=== PATIENT | male | born 1975 | race Caucasian/White ===

== ENCOUNTER 2021-02-24 18:26 | Outpatient (REF) | payer OTHER, SELFPAY ==
[2021-02-26 12:47] LABS: HSV 1 DNA Result Negative (Negative); HSV 2 DNA Result Negative (Negative)
== END 2021-02-24 18:27 | disposition home or self-care (01) ==
LOC: LBN 18:26
PROVIDERS: PCP Emergency Medicine; Visit Provider Family Medicine
DX: R21 Rash and other nonspecific skin eruption (principal)
CPT/HCPCS: 87529; 87070; 87205

== ENCOUNTER 2021-04-28 01:36 | Outpatient (CLI) | payer OTHER, SELFPAY ==
[2021-05-01 11:09] LABS: Syphilis Serology (RPR) Negative (Negative)
== END 2021-04-28 01:37 | disposition home or self-care (01) ==
LOC: LBO 01:36
PROVIDERS: PCP Family Medicine; Visit Provider Physician Assistant Medical
DX: L08.9 Local infection of the skin and subcutaneous tissue, unspecified (principal)
CPT/HCPCS: 36415; 86592

== ENCOUNTER 2021-07-24 09:46 | Outpatient (REF) | payer OTHER, SELFPAY ==
--- NOTE | 2021-07-24 09:00 | SKI_PTH ---
PATIENT: Leopoldo Powers LOC: [facility] U#:[id number] AGE/SX: 45/M ROOM: RE07/24/[address]: Nishant Peck MD : [id number] BED: DIS: 07/24/2021 SPEC #: [id number] RECD: 07/24/21 17:39 STATUS: INEZ REJaneth #: [id number] RICHARD: 07/24/21 09:[address]: Nishant Peck DEPT: Surgical Specimen RECD BY: Maria Eugenia Baldwin ENTERED: 07/24/21 17:39 SP TYPE: IMTIAZ LORA DR: Becky Dupont Tissues: 1 - SKIN BIOPSY(SHAVE/PUNCH) Procedures: GROSS AND MICRO LEVEL 4 SPECIAL STAIN 1 Comments: [id number]
== END 2021-07-24 09:47 | disposition home or self-care (01) ==
LOC: LBN 09:46
PROVIDERS: PCP Family Medicine; Visit Provider Otolaryngology
DX: K12.1 Other forms of stomatitis (principal)
CPT/HCPCS: 88305; 88312

== ENCOUNTER 2023-09-19 15:47 | Outpatient (CLI) | payer MEDICAID, SELFPAY ==
[2023-09-19 13:51] LABS: Bilirubin Negative (Negative); Blood Negative (Negative); Clarity Clear (Clear); Glucose Negative (Negative); Ketones Negative (Negative); Leukocyte Esterase Negative (Negative); Nitrite Negative (Negative); Specific Gravity 1.025 (1.005-1.025)
[2023-09-19 14:05] LABS: Anion Gap 4.6 mmol/L (3-11); BUN 17 mg/dL (7-18); CO2 34.4 mmol/L (21.0-32.0); CREATININE 0.9 mg/dL (0.70-1.30); Calcium 8.8 mg/dL (8.5-10.1); Calculated LDL 131 mg/dL (<100); Chloride 104 mmol/L (98-107); Cholesterol 211 mg/dL (<200); Estimated GFR 104.05 (mL/min/1.73m2); Glucose 97 mg/dL (74-106); HDL Cholesterol 56 mg/dL (40-60); Potassium 3.9 mmol/L (3.5-5.1); Sodium 143 mmol/L (136-145); Triglyceride 123 mg/dL (<150)
[2023-09-20 10:12] LABS: PSA, Screening 0.7 ng/mL (<=3.5)
[2023-09-20 10:18] LABS: Hepatitis C Ab w Rflx HCV PCR Negative (Negative)
[2023-09-20 10:27] LABS: HIV-1/2 Ag & Ab Screen Negative (Negative)
== END 2023-09-19 15:48 | disposition home or self-care (01) ==
LOC: LBO 15:49
PROVIDERS: PCP Family Medicine; Visit Provider Family Medicine
DX: Z00.00 Encounter for general adult medical examination without abnormal findings (principal); F33.8 Other recurrent depressive disorders; Z13.6 Encounter for screening for cardiovascular disorders; Z11.4 Encounter for screening for human immunodeficiency virus [HIV]; Z12.5 Encounter for screening for malignant neoplasm of prostate; I10 Essential (primary) hypertension; R30.0 Dysuria; R10.2 Pelvic and perineal pain; G89.29 Other chronic pain
CPT/HCPCS: 36415; 80048; 80061; 84153; 86803; 87389; 81003